=== PATIENT | male | born 1975 | race Caucasian/White ===

== ENCOUNTER → 2019-04-03 | Outpatient (REF) | payer OTHER ==
[2019-04-03 21:10] LABS: BASO # 0.1 10^3/uL (0.0-0.2); BASO % 0.7 % (0.0-1.0); EOS # 0.1 10^3/uL (0.0-0.50); EOS % 1.4 % (0.0-3.0); HEMATOCRIT 43.3 % (42.0-52.0); HEMOGLOBIN 14.8 g/dl (13.5-17.5); LYMPH # 2.3 10^3/uL (1.5-4.5); LYMPH % 33.5 % (24.0-44.0); MEAN CORPUSCULAR HEMOGLOBIN 31.4 pg (27.0-33.0); MEAN CORPUSCULAR HGB CONC 34.2 g/dl (32.0-36.5); MEAN CORPUSCULAR VOLUME 91.7 fl (80.0-96.0); MONO # 0.7 10^3/uL (0.0-0.8); NEUTROPHILS # 3.8 10^3/uL (1.8-7.7); NEUTROPHILS % 54.1 % (36.0-66.0); PLATELET COUNT, AUTOMATED 219 10^3/uL (150-450); RED BLOOD COUNT 4.72 10^6/uL (4.30-6.10)
== END ==
LOC: M LABDRWAD 10:45
PROVIDERS: ATTEND Physician Assistant
DX: L04.0 Acute lymphadenitis of face, head and neck (principal)

== ENCOUNTER → 2019-04-17 | Outpatient (CLI) | payer OTHER ==
--- NOTE | 2019-04-17 17:09 | REP ---
ULTRASOUND LEFT NECK SOFT TISSUES: Real-time sonographic evaluation of the left neck soft tissues performed at the site of palpable lump in the submandibular region. At the inferior aspect of the left parotid gland there is a complex solid and cystic mass with internal blood flow with duplex Doppler evaluation. It measures 2.7 x 1.9 x 3.2 cm. In the left neck soft tissues a normal sized lymph node is also seen 9 x 3 x 6 mm. IMPRESSION: At the site of the palpable lump in the left neck soft tissues, at the inferior margin of the left parotid gland is a complex solid nodule with cystic components measuring 2.7 x 1.9 x 3.2 cm. This may represent neoplasm such as Warthin's tumor. Electronically Signed by Mynor Galicia MD 04/18/2019 04:25 P
== END ==
LOC: M RAD 14:55
PROVIDERS: ATTEND Physician Assistant
DX: R22.1 Localized swelling, mass and lump, neck (principal); L04.1 Acute lymphadenitis of trunk

== ENCOUNTER → 2019-05-06 | Outpatient (REF) | payer OTHER | LOC: M LAB REF 12:01 | PROVIDERS: ATTEND Physician Assistant | DX: J02.9 Acute pharyngitis, unspecified (principal) ==

== ENCOUNTER → 2019-05-20 | Outpatient (CLI) | payer OTHER ==
[~2019-05-20] MED LIST: ISOVUE-370 76% 100ML VIAL (Q9967) As Ordered ONE
--- NOTE | 2019-05-20 09:45 | REP ---
Soft-tissue neck CT study with IV contrast: History: Neck mass. Comparison thyroid sonography April 17, 2019. CT contrast dose: 75 ml of intravenous Isovue 370. CT findings: A metallic BB is affixed to the skin at the site of the palpable lump. This corresponds to a heterogeneous enhancing mass along the posterior margin of the left submandibular gland. It appears to originate from the left submandibular gland. It does not appear to be a parotid lesion. The parotid glands are normal and symmetric. The mass measures 4.5 cm in craniocaudal span x 2.5 cm medial to lateral by 2.9 cm anterior to posterior. 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 The right submandibular gland is unremarkable. There is no visible adenopathy in the neck. Scattered normal-sized anterior posterior cervical lymph nodes are seen. Visualized paranasal sinuses are clear. No intraorbital lesion is seen. Tonsillar and peritonsillar soft tissues are unremarkable. Epiglottis, glottic and subglottic airway are intact. There is degenerative spondylosis in the cervical spine with degenerative disc disease most pronounced at C6-7 and C5-6. At C6-7, there is a large densely calcified disc protrusion extending caudally along the posterior cortex of C7. This appears to be compressing the spinal canal contents. There is bilateral uncovertebral spurring producing neural foraminal encroachment at C6-7 and C5-6. Mild degenerative disc changes are seen at C4-5. 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 No evidence of adenopathy. There is a large calcified disc protrusion at C6-7 in the cervical spine. Electronically Signed by Justus Cisneros MD 05/20/2019 11:10 A
== END ==
LOC: M RAD 08:23
PROVIDERS: ATTEND Otolaryngology
DX: R22.1 Localized swelling, mass and lump, neck (principal); M50.223 Other cervical disc displacement at C6-C7 level
CPT/HCPCS: 70491; Q9967

== ENCOUNTER → 2025-06-12 | Outpatient (CLI) | payer OTHER | LOC: M PLAIMG 14:34 | PROVIDERS: ATTEND Nurse Practitioner Family | DX: M76.60 Achilles tendinitis, unspecified leg (principal) ==

== ENCOUNTER → 2025-07-04 | Outpatient (CLI) | payer OTHER | LOC: M PLARAD 09:30 | PROVIDERS: ATTEND Nurse Practitioner Family | DX: M76.60 Achilles tendinitis, unspecified leg (principal) ==

== ENCOUNTER → 2025-09-30 | Outpatient (REF) | payer OTHER | LOC: M LABDRWAD 17:05 | PROVIDERS: ATTEND Nurse Practitioner Family | DX: R97.20 Elevated prostate specific antigen [PSA] (principal) ==